=== PATIENT | male | born 1965 | race Two or more races ===

== ENCOUNTER 2021-10-10 14:02 | Emergency (ER) | payer OTHER ==
[~2021-10-10] VITALS: Ht 165.1 cm; Wt 79.4 kg
[2021-10-10] MEDS ORDERED: KETOROLAC TROMETH 30 MG/ML 1ML VIAL IV ONE (15:45)
[2021-10-10] MEDS ORDERED: PIPERACILLIN-TAZO 4.5GM 100 ML IV ONE (15:45)
[2021-10-10 15:48] LABS: Basophils # (auto) 0.1 10 ^3/uL (0-0.2); Basophils % (auto) 1.5 % (0.0-2.0); Eosinophils # (auto) 0.9 10 ^3/uL (0-0.8); Eosinophils % (auto) 12.4 % (0.0-7.0); Hematocrit 45.3 % (41.0-53.0); Hemoglobin 15.7 g/dL (13.5-17.5); Lymphocytes # (auto) 2.3 10 ^3/uL (0.4-5.4); Lymphocytes % (auto) 30.2 % (10.0-50.0); Mean Corpuscular Hemoglobin 31.8 pg (28.0-32.0); Mean Corpuscular Hgb Conc. 34.6 g/dL (32.0-36.0); Mean Corpuscular Volume 91.8 fL (80.0-100.0); Monocytes # (auto) 0.8 10 ^3/uL (0-1.3); Monocytes % (auto) 10.2 % (0.0-12.0); Neutrophils # (auto) 3.5 10 ^3/uL (1.6-8.6); Neutrophils % (auto) 45.7 % (37.0-80.0); Red Blood Cells 4.94 10^6/uL (4.5-5.90); Red Cell Distribution Width 12.5 % (11.8-14.3); White Blood Cell 7.6 10^3/uL (4.4-10.8)
[2021-10-10 16:04] LABS: Calcium 9.1 mg/dL (8.5-10.1); Potassium 3.7 mmol/L (3.5-5.1)
[2021-10-10] MEDS ORDERED: diphenhdrAMINE HCL 50 MG/1 ML VL IV ONE (17:30)
[2021-10-10 18:40] VITALS: BP 107/77
== END 2021-10-10 20:24 ==
LOC: EEVIPCON 14:02 → ER 14:02
DX: K11.21 Acute sialoadenitis (principal); E11.9 Type 2 diabetes mellitus without complications; K21.9 Gastro-esophageal reflux disease without esophagitis; E78.5 Hyperlipidemia, unspecified
CPT/HCPCS: 36415; 70486; 80048; 83605; 85025; 87040; 96365; 96366; 96375; 99284; J1200; J1885; J2543